=== PATIENT | female | born 1950 | race Hispanic/Latino ===

== ENCOUNTER → 2019-03-27 | Outpatient (CLI) | payer MEDICARE | END | disposition home or self-care (01) | LOC: SHCH 15:24 | PROVIDERS: ATTEND Internal Medicine Cardiovascular Disease | DX: I08.1 Rheumatic disorders of both mitral and tricuspid valves (principal); R01.1 Cardiac murmur, unspecified; R00.2 Palpitations | CPT/HCPCS: 93306 ==

== ENCOUNTER → 2023-07-12 | Outpatient (CLI) | payer OTHER | END | disposition home or self-care (01) | LOC: RAH 07:17 | PROVIDERS: ATTEND Internal Medicine Gastroenterology | DX: R10.13 Epigastric pain (principal); R68.81 Early satiety | CPT/HCPCS: 78264; A9541 ==

== ENCOUNTER → 2023-08-22 | Outpatient (CLI) | payer OTHER | END | disposition home or self-care (01) | LOC: SHCH 14:51 | PROVIDERS: ATTEND Internal Medicine Cardiovascular Disease | DX: I08.3 Combined rheumatic disorders of mitral, aortic and tricuspid valves (principal); I11.9 Hypertensive heart disease without heart failure; E11.9 Type 2 diabetes mellitus without complications | CPT/HCPCS: 93306; 93356 ==

== ENCOUNTER → 2023-09-06 | Outpatient (CLI) | payer OTHER | END | disposition home or self-care (01) | LOC: RAH 13:17 | PROVIDERS: ATTEND Internal Medicine Cardiovascular Disease | DX: Z13.6 Encounter for screening for cardiovascular disorders (principal) | CPT/HCPCS: 75571 ==

== ENCOUNTER → 2023-10-09 | Outpatient (CLI) | payer OTHER ==
[2023-10-09] MEDS: REGADENOSON 0.4 MG/5 ML PF SYG IVP ONE (15:32)
== END | disposition home or self-care (01) ==
LOC: SHCH 08:17
PROVIDERS: ATTEND Internal Medicine Cardiovascular Disease
DX: I25.10 Atherosclerotic heart disease of native coronary artery without angina pectoris (principal); R06.00 Dyspnea, unspecified
CPT/HCPCS: 78452; 96374; 93017; J2785; A9500 ×2

== ENCOUNTER 2024-05-21 16:39 | Emergency (ER) | payer OTHER ==
[~2024-05-21] VITALS: Ht 157.5 cm; Wt 79.4 kg
--- NOTE | 2024-05-21 18:03 | ERN ---
ED Note History of Present Illness Stated Complaint: ABDOMINAL PAIN,VOMIT Chief Complaint: Abdominal Pain Time Seen by MD: 16:51 Dictation: The patient is a 73-year-old female with a past medical history of hypertension, cholelithiasis presented to emergency department with the chief complaints of right upper quadrant pain associated with the nausea and vomiting since past 1 week. The patient went to [facility] 2 days ago with the similar complaints and found to have a gallstones on the ultrasound. The nate gilmore explained the patient's gallstones are moving and about to obstruct the common bile duct, however the patient does not require any emergency cholecystectomy at this time. The patient was advised to follow up with PCP outpatient. However the symptoms did not resolve and the patient decided to seek the medical care. She denies any diarrhea, shortness of breath, chest pain, or any other complaints. Allergies: Coded Allergies: No Known Allergies (Unverified Allergy, Unknown, 05/21/24) Past Medical History Past Medical History: Diabetes-Type II, Gallstones, High Cholesterol, Hypertension Surgical History: Other Family History: Negative Social History: Negative History: Not Applicable RN Note Reviewed/Agreed w/PFSH: Yes Review of System Dictation REVIEW OF SYSTEMS CONSTITUTIONAL: Denies fevers, chills, or night sweats. No unintentional weight loss reported. NEUROLOGICAL: Denies headache, amaurosis fugax, motor weakness, sensory deficit, vertigo/spinning sensation, gait abnormalities, or tremors. ENT: No hearing loss, otalgia, otorrhea, rhinitis, rhinorrhea, hoarseness, or sore throat. CARDIOVASCULAR: Denies any exertional angina, dyspnea on exertion, orthopnea, paroxysmal nocturnal dyspnea, palpitations, life-threatening arrhythmias, claudication. PULMONARY: Denies any shortness of breath, cough, phlegm/sputum, hemoptysis, pleuritic chest pain. SLEEP: Denies morning headaches, daytime somnolence or napping. Denies difficulty falling asleep, staying asleep, waking from sleep. Denies knowledge of snoring. GASTROINTESTINAL: Denies any type of dysphagia to either liquids or solids. Denies nausea, vomiting, pyrosis, early satiety, abdominal pain, diarrhea, constipation, or changes in stool consistency or caliber. Denies coffee-ground emesis, hematemesis, hematochezia, or melanotic stools. GENITOURINARY: Denies frequency, urgency, nocturia, hematuria or incontinence (Storage/Irritative symptoms.) Low urinary stream, straining to void, urinary intermittency or hesitancy, splitting of the voiding stream, terminal dribbling. ENDOCRINOLOGIC: Denies polyuria, polydipsia, polyphagia or heat/cold into lerances. HEMATOLOGIC: Denies thrombophilia/previous clots, or coagulopathy/bleeding disorders. ONCOLOGIC: Denies personal history of malignancy. DERMATOLOGIC: Denies rashes or pruritus. PSYCHIATRIC: Denies any suicidal or homicidal ideation. Denies hallucinations. Initial Vital Sign VS Vital Signs Date Time Temp Pulse Resp B/P (MAP) Pulse Ox O2 Delivery O2 Flow Rate FiO2 05/21/24 17:16 99.3 102 20 112/57 99 05/21/24 19:14 Room Air* 0 21 Physical Exam Dictation PHYSICAL EXAM GENERAL APPEARANCE: The patient is awake, alert, and oriented, in no acute cardiopulmonary distress. NEUROLOGICAL: Cranial nerves II-XII grossly intact. Motor is 5/5 in bilateral upper and lower extremities proximal to distal. No sensory deficits. HEENT: Face is symmetric. Pupils are equal and reactive. Extraocular movements are intact. NECK: Supple. No JVD. No thyromegaly. No submental, submandibular, pre- /postauricular, occipital or supraclavicular lymphadenopathy. CHEST: Normal chest expansion. No Telemetry. LUNGS: Absence of any rales, rhonchi or any wheezing. CARDIOVASCULAR: Regular. S1 and S2 normal. No appreciable rubs, murmurs or gallops. ABDOMEN: Soft, nontender, and nondistended. There is no rebound, voluntary guarding, or rigidity. : Deferred. No Aparicio. EXTREMITIES: Non-edematous and not cyanotic. No clubbing. Good capillary refill. SKIN: No skin breakdown. Results (Laboratory/Radiology) Laboratory/Radiology Laboratory Tests Test 05/21/24 19:35 White Blood Count 16.9 K/uL (4.8-10.8) H Red Blood Count 3.59 MIL/uL (4.00-5.50) L Hemoglobin 9.9 g/dL (12.0-16.0) L Hematocrit 30.6 % (36-48) L Mean Corpuscular Volume 85.2 fL (79-99) Mean Corpuscular Hemoglobin 27.6 pg (27.0-33.0) Mean Corpuscular Hemoglobin Concent 32.4 g/dL (32.0-36.0) Red Cell Distribution Width 15.0 % (11.0-15.5) Platelet Count 517 K/uL (130-400) H Mean Platelet Volume 8.9 fL (7.5-10.5) Immature Granulocyte % (Auto) 0.8 % (0-1) Neutrophils (%) (Auto) 81.2 % (40.0-77.0) H Lymphocytes (%) (Auto) 11.5 % (21.0-51.0) L Monocytes (%) (Auto) 5.7 % (3.0-13.0) Eosinophils (%) (Auto) 0.5 % (0.0-8.0) Basophils (%) (Auto) 0.3 % (0.0-5.0) Neutrophils # (Auto) 13.8 K/uL (1.8-7.7) H Lymphocytes # (Auto) 1.9 K/uL (1.0-4.8) Monocytes # (Auto) 1.0 K/uL (0.1-1.0) Eosinophils # (Auto) 0.08 K/uL (0.00-0.70) Basophils # (Auto) 0.05 K/uL (0.00-0.20) Absolute Immature Granulocyte (auto 0.13 K/uL (0-1) Nucleated Red Blood Cells 0.0 % (0.0-0.19) Sodium Level 132 mmol/L (136-145) L Potassium Level 3.9 mmol/L (3.5-5.1) Chloride Level 95 mmol/L (101-111) L Carbon Dioxide Level 30 mmol/L (21-32) Blood Urea Nitrogen 33 mg/dL (7-18) H Creatinine 1.1 mg/dL (0.5-1.0) H Glomerular Filtration Rate Calc 54 mL/min (>90) Random Glucose 100 mg/dL (70-105) Total Calcium 9.2 mg/dL (8.5-10.1) Total Bilirubin 0.4 mg/dL (0.2-1.0) Aspartate Amino Transf (AST/SGOT) 16 U/L (10-37) Alanine Aminotransferase (ALT/SGPT) 24 U/L (12-78) Alkaline Phosphatase 72 U/L (50-136) Total Protein 6.6 g/dL (6.0-8.3) Albumin 2.8 g/dL (3.5-5.0) L Lipase 65 U/L (16-77) Labs Reviewed?: Yes Ultrasound Comment: PATIENT: EDUARDO LAMB MR#: [id number] : 1950 SEX: F AGE: 73 LOCATION: [facility] ORDER 45 STATUS: [facility] REPORT#: [id number] SERVICE 44 REASON: H/o gallstones, N/V ORDERING PHYSICIAN: JOSHUA MOORE MD PROCEDURE: ABDRUQLTD - US ABDOMINAL RUQ\LTD ULTRASOUND ABDOMEN LIMITED INDICATION: Right upper abdominal pain COMPARISON: None FINDINGS: The liver is coarse in echotexture; no focal lesion demonstrated. Main portal vein is patent, and normal direction of vascular flow demonstrated. The common bile duct diameter measures 4.0 mm. Multiple echogenic shadowing stones within the gallbladder lumen without associated pericholecystic fluid. No sonographic Rice's sign elicited by the ultrasound corn press operator. Wall thickness measures 2.0 mm. Visible portions of the pancreas appear normal. The right kidney measures 10.6 x 4.5 x 4.8 cm,and is normal in echogenicity, without evidence for hydronephrosis.No shadowing stones demonstrated. 2.1 cm simple right renal cyst demonstrated. No free fluid demonstrated. IMPRESSION: Cholelithiasis without cholecystitis. Liver parenchymal irregularity for which correlation with liver function tests is recommended. DICTATED BY: RAMAKRISHNA MOORE MD DATE: 05/21/241807 ELECTRONICALLY SIGNED BY: RAMAKRISHNA MOORE MD DATE: 05/21/241810 ED Course ED Course Orders Procedure Category Date Status Time Cbc With Differential LAB 05/21/24 Complete 17:45 Comprehensive LAB 05/21/24 Complete Metabolic Panel 17:45 Us Abdominal Ruq\Ltd US 05/21/24 Resulted 17:45 Lipase LAB 05/21/24 Complete 17:56 Ondansetron 4mg PHA 05/21/24 Complete Tablet (Zofran 4mg 18:00 Acetaminophen 500mg PHA 05/21/24 Complete Tab (Tylenol 500mg T 18:00 0.9%Nacl 1000ml (Ns PHA 05/21/24 Complete 1000ml) 19:30 Pantoprazole 40mg Inj PHA 05/21/24 Complete (Protonix 40mg Inj 19:30 Current Medications Medications (Trade) Dose Ordered Sig/Jasbir Route PRN Reason Start Time Stop Time Status Last Admin Dose Admin Acetaminophen (TYLenol 500MG TAB) 500 mg ONCE ONCE PO 05/21/24 18:00 05/21/24 18:01 DC 05/21/24 19:42 Ondansetron HCl (zoFRAN 4MG TABLET) 4 mg ONCE ONCE PO 05/21/24 18:00 05/21/24 18:01 DC 05/21/24 19:41 Pantoprazole Sodium (PROTonix 40MG INJ) 40 mg ONCE ONCE IVP 05/21/24 19:30 05/21/24 19:31 DC 05/21/24 19:41 Sodium Chloride 1,000 ml @ 0 mls/hr ONCE ONCE IV 05/21/24 19:30 05/21/24 19:31 DC 05/21/24 19:42 Vital Signs Date Time Temp Pulse Resp B/P (MAP) Pulse Ox O2 Delivery O2 Flow Rate FiO2 05/21/24 19:14 99.3 102 20 112/57 99 Room Air* 0 21 05/21/24 17:16 99.3 102 20 112/57 99 Medical Decision Making [facility] Differential diagnosis: Cholelithiasis Rationale: Tests considered and ordered secondary to shared decision making include: Previous outside records reviewed: Old ER visits. Risk of complication and/or morbidity or mortality of patient management: None Medications-Per medication reconciliation Need for hospitalization: Patient does not meet criteria for hospitalization. Need for emergency major/minor surgery: No There are no social concerns with this patient. Prescription drug management Prescriptions will include symptomatic care Patient's prior external medical records from other ER visits were reviewed by me as indicated. Prior testing and results from previous visits were reviewed. Prior tests were taken into account with medical decision making and resource utilization, independent historian/historians were used to obtain complete medical history. I independently interpreted the test that were performed, results were reviewed by me and considered findings on radiology if ordered. DX & DISP Disposition: Discharge Departure Impression: Primary Impression: Biliary colic Additional Impressions: Gastroenteritis, Gastroesophageal reflux Condition: Stable Scripts Levofloxacin (Levofloxacin) 750 Mg Tablet 1 TAB PO DAILY for 5 Days, #5 TAB 0 Refills Prov: KELVIN BROWN MD 05/21/24 Ondansetron (Ondansetron Odt) 4 Mg Tab.rapdis 4 MG PO Q6HPRN PRN for nausea, #16 TAB 0 Refills Prov: KELVIN BROWN MD 05/21/24 Omeprazole (Omeprazole) 40 Mg Capsule.dr 1 CAP PO DAILY for 30 Days, #30 CAP 0 Refills Prov: KELVIN BROWN MD 05/21/24 Additional Instructions: Patient and the caregiver have been informed of all the diagnostic tests and the imaging conducted during the today's visit to the emergency room and has verbalized understanding of the results I have personally reviewed and interpreted all diagnostic exams performed here in the ER today as well as the vital signs documented by the nursing staff. The patient is now being discharged to home and should follow up with the primary care physician or the specialist as directed by the ER staff. Follow-up with primary care provider in 1 to 2 days. Take medications as directed here in the emergency room. Okay to continue home medications unless otherwise discussed during your visit in the emergency room today. Return to your nearest emergency room if symptoms worsen or if there is no improvement. Call 911 if you need immediate assistance. Take Tylenol or Motrin [id number] as needed and if no contraindications are present. Increase oral hydration. A wound culture or urine culture was ordered here in the emergency room department please follow-up with primary care provider and advise them to get repeat ports from our facility. If you had any Omid wrap/splints that were applied here, please do not remove them until you see your primary care or specialty. Referrals: CHASTITY ALVA MD (PCP) JOSHUA MOORE MD May 21, 2024 18:03 KELVIN BROWN MD May 21, 2024 19:17
--- NOTE | 2024-05-21 18:11 | HMCIMG ---
ULTRASOUND ABDOMEN LIMITED INDICATION: Right upper abdominal pain COMPARISON: None FINDINGS: The liver is coarse in echotexture; no focal lesion demonstrated. Main portal vein is patent, and normal direction of vascular flow demonstrated. The common bile duct diameter measures 4.0 mm. Multiple echogenic shadowing stones within the gallbladder lumen without associated pericholecystic fluid. No sonographic Rice's sign elicited by the ultrasound cell room operator. Wall thickness measures 2.0 mm. Visible portions of the pancreas appear normal. The right kidney measures 10.6 x 4.5 x 4.8 cm,and is normal in echogenicity, without evidence for hydronephrosis.No shadowing stones demonstrated. 2.1 cm simple right renal cyst demonstrated. No free fluid demonstrated. IMPRESSION: Cholelithiasis without cholecystitis. Liver parenchymal irregularity for which correlation with liver function tests is recommended.
[2024-05-21] MEDS: ondanSETRON 4MG TABLET PO ONE (19:41)
[2024-05-21] MEDS: PANTOPrazole 40 MG/VIAL IVP ONE (19:41)
[2024-05-21] MEDS: 0.9%NACL 1000ML 1,000 ML IV ONE (19:42)
[2024-05-21] MEDS: acetaMINOPHEN 500 MG TABLET PO ONE (19:42)
[2024-05-21 20:11] LABS: BASOPHILS # (AUTO) 0.05 K/uL (0.00-0.20); BASOPHILS % (AUTO) 0.3 % (0.0-5.0); EOSINOPHILS # (AUTO) 0.08 K/uL (0.00-0.70); EOSINOPHILS % (AUTO) 0.5 % (0.0-8.0); HEMATOCRIT 30.6 % (36-48); IMMATURE GRANULOCYTE ABSOLUTE 0.13 K/uL (0-1); LYMPHOCYTES # (AUTO) 1.9 K/uL (1.0-4.8); LYMPHOCYTES % (AUTO) 11.5 % (21.0-51.0); MEAN CORPUSCULAR HEMOGLOBIN 27.6 pg (27.0-33.0); MEAN CORPUSCULAR HGB CONC 32.4 g/dL (32.0-36.0); MEAN CORPUSCULAR VOLUME 85.2 fL (79-99); MONOCYTES % (AUTO) 5.7 % (3.0-13.0); NEUTROPHILS # (AUTO) 13.8 K/uL (1.8-7.7); NEUTROPHILS % (AUTO) 81.2 % (40.0-77.0); PLATELET COUNT (AUTO) 517 K/uL (130-400); RED BLOOD CELL COUNT(AUTO) 3.59 MIL/uL (4.00-5.50); WHITE BLOOD COUNT (AUTO) 16.9 K/uL (4.8-10.8)
[2024-05-21 20:23] LABS: CREATININE 1.1 mg/dL (0.5-1.0); POTASSIUM 3.9 mmol/L (3.5-5.1)
[2024-05-21 20:28] LABS: ALBUMIN 2.8 g/dL (3.5-5.0); BILIRUBIN,TOTAL 0.4 mg/dL (0.2-1.0); TOTAL PROTEIN, SERUM 6.6 g/dL (6.0-8.3)
[2024-05-21] MEDS ORDERED: LEVO750T40 PO (20:50)
[2024-05-21] MEDS ORDERED: ONDA-243 PO (20:50)
[2024-05-21] MEDS ORDERED: OMEP40CA21 PO (20:50)
[2024-05-21 21:19] VITALS: BP 121/62; PULSE 92; RESP 20; TEMP 98.4; O2SAT 99
== END 2024-05-21 21:21 | disposition home or self-care (01) ==
LOC: EDH 16:39
DX: K80.50 Calculus of bile duct without cholangitis or cholecystitis without obstruction (principal); K21.9 Gastro-esophageal reflux disease without esophagitis; K52.9 Noninfective gastroenteritis and colitis, unspecified; E11.9 Type 2 diabetes mellitus without complications; E78.00 Pure hypercholesterolemia, unspecified; I10 Essential (primary) hypertension
CPT/HCPCS: 99285; 96374; 76705; 96361; 80053; 83690; 85025; 36415; Q0162; J7030; J2470